=== PATIENT | male | born 1960 | race Caucasian/White ===

== ENCOUNTER 2016-08-29 14:19 | Inpatient (IN) | payer OTHER ==
[~2016-08-29] VITALS: Ht 177.8 cm; Wt 87.8 kg
[~2016-08-29 14:19] MED LIST: FLEXERIL10 MG PO
[2016-08-29 19:55] VITALS: BP 144/70
[2016-08-29 20:02] VITALS: BP 144/70
[2016-08-29 21:19] LABS: POINT-OF-CARE METER ID UU13113720; POINT-OF-CARE USER ID 610211320
[2016-08-30 00:08] VITALS: BP 154/67
[2016-08-30] MEDS ORDERED: BENADRYL25 MG PO (01:36)
[2016-08-30] MEDS ORDERED: COLACE100 MG PO (01:38)
[2016-08-30] MEDS ORDERED: PROZAC20 MG PO (01:38)
[2016-08-30] MEDS ORDERED: LOVENOX40 MG/0.4 SC (01:38)
[2016-08-30] MEDS ORDERED: LANTUS 3 M100 UNITS1 SC (01:39)
[2016-08-30] MEDS ORDERED: CONSTULOSE10 GM/15 M PO (01:40)
[2016-08-30] MEDS ORDERED: LISINOPRIL20 MG PO (01:40)
[2016-08-30] MEDS ORDERED: OXYCODONE HCL10 MG PO (01:42)
[2016-08-30] MEDS ORDERED: PERCOCET 10/1 TABLET PO (01:42)
[2016-08-30] MEDS ORDERED: SENNO8.6 MG PO (01:43)
[2016-08-30] MEDS ORDERED: MIRALAX17 GM PO (01:43)
[2016-08-30] MEDS ORDERED: COREG12.5 M1 PO (01:44)
[2016-08-30] MEDS ORDERED: METFORMIN HCL850 MG PO (01:44)
[2016-08-30] MEDS ORDERED: LO-DOSE ASPIRIN81 M2 PO (01:45)
[2016-08-30] MEDS ORDERED: HYDROCHLOROTHIA25 MG PO (01:45)
[2016-08-30] MEDS ORDERED: LIPITOR80 MG PO (01:45)
[2016-08-30 05:21] LABS: HEMATOCRIT 29.1 % (38.0-50.0); MCH 31.2 PG (29.0-34.0); MCHC 33.7 G/DL (30.0-36.0); MCV 92.7 FL (86-99); MEAN PLAT.VOLUME 8.9 uM^3 (9.0-12.4); PLATELET COUNT 181 K/uL (156-360); RBC DIS.WIDTH-CV 12.6 % (11.8-14.6); RBC DIS.WIDTH-SD 42.2 % (39-53); RED BLOOD COUNT 3.14 M/uL (4.00-5.50); WHITE BLOOD COUNT 7.9 K/uL (4.1-10.2)
[2016-08-30 05:35] VITALS: BP 140/64
[2016-08-30 05:41] LABS: INTER. NORMALIZED RATIO 1.5; PROTHROMBIN TIME 15.4 (9.2-11.2)
[2016-08-30 05:46] LABS: ALKALINE PHOSPHATASE 68 IU/L (3-129); ANION GAP 9 MEQ/L (2-14); CHLORIDE 103 MEQ/L (99-109); GFR ESTIMATE (CALCULATED) > 59 mL/min/; GLUCOSE 157 mg/dL (70-99); POTASSIUM 3.3 MEQ/L (3.7-5.4); SAMPLE HEMOLYSIS CHECK 0; SAMPLE ICTERIC CHECK 0; SAMPLE LIPEMIA CHECK 0; SODIUM 138 MEQ/L (136-147); TOTAL BILIRUBIN 0.6 MG/DL (0.0-1.0); UREA NITROGEN (BUN) 19 mg/dL (9-23)
[2016-08-30 07:15] LABS: POINT-OF-CARE METER ID UU13113720
[2016-08-30 11:27] LABS: POINT-OF-CARE METER ID UU13113720
[2016-08-30 15:36] VITALS: BP 149/68
[2016-08-30 16:59] LABS: POINT-OF-CARE METER ID UU14174215
[2016-08-30 21:30] LABS: POINT-OF-CARE METER ID UU13113720; POINT-OF-CARE USER ID 610211320
[2016-08-31 05:18] VITALS: BP 105/58
[2016-08-31 05:52] LABS: ANION GAP 8 MEQ/L (2-14); CHLORIDE 106 MEQ/L (99-109); GFR ESTIMATE (CALCULATED) > 59 mL/min/; GLUCOSE 134 mg/dL (70-99); POTASSIUM 3.8 MEQ/L (3.7-5.4); SAMPLE HEMOLYSIS CHECK 0; SAMPLE ICTERIC CHECK 0; SAMPLE LIPEMIA CHECK 0; SODIUM 140 MEQ/L (136-147); UREA NITROGEN (BUN) 17 mg/dL (9-23)
[2016-08-31 05:59] LABS: INTER. NORMALIZED RATIO 1.9; PROTHROMBIN TIME 19.5 (9.2-11.2)
[2016-08-31 08:17] LABS: POINT-OF-CARE METER ID UU13113720
[2016-08-31 11:53] LABS: POINT-OF-CARE METER ID UU13113720
[2016-08-31 16:04] VITALS: BP 157/72
[2016-08-31 16:54] LABS: POINT-OF-CARE METER ID UU14174215
[2016-08-31 21:13] LABS: POINT-OF-CARE METER ID UU13113720
[2016-09-01 05:28] VITALS: BP 158/72
[2016-09-01 05:47] LABS: PROTHROMBIN TIME 20.8 (9.2-11.2)
[2016-09-01 06:59] LABS: POINT-OF-CARE METER ID UU13113720
[2016-09-01 08:37] VITALS: BP 160/78
[2016-09-01 11:39] LABS: POINT-OF-CARE METER ID UU13113720
[2016-09-01 15:35] VITALS: BP 128/68
[2016-09-01 16:26] LABS: POINT-OF-CARE METER ID UU13113720
[2016-09-01 21:09] LABS: POINT-OF-CARE METER ID UU13113720; POINT-OF-CARE USER ID 610211320
[2016-09-02 05:08] LABS: INTER. NORMALIZED RATIO 1.8; PROTHROMBIN TIME 18.9 (9.2-11.2)
[2016-09-02 05:41] VITALS: BP 149/67
[2016-09-02 07:27] VITALS: BP 158/72
[2016-09-02 07:48] LABS: POINT-OF-CARE METER ID UU14174215; POINT-OF-CARE USER ID AHSSSJB31
[2016-09-02 12:07] LABS: POINT-OF-CARE METER ID UU14174215; POINT-OF-CARE USER ID AHSSSJB31
[2016-09-02 15:30] VITALS: BP 125/61
[2016-09-02 16:22] LABS: POINT-OF-CARE METER ID UU13113720
[2016-09-02 21:33] LABS: POINT-OF-CARE METER ID UU14174215
[2016-09-03 04:22] LABS: INTER. NORMALIZED RATIO 1.9; PROTHROMBIN TIME 19.4 (9.2-11.2)
[2016-09-03 04:51] VITALS: BP 149/76
[2016-09-03 07:19] LABS: POINT-OF-CARE METER ID UU13113720; POINT-OF-CARE USER ID AHSSSJB31
[2016-09-03 12:05] LABS: POINT-OF-CARE METER ID UU13113720
[2016-09-03 16:09] VITALS: BP 163/94
[2016-09-03 16:38] LABS: POINT-OF-CARE METER ID UU14174215
[2016-09-03 21:25] LABS: POINT-OF-CARE METER ID UU14174215
[2016-09-04 05:16] VITALS: BP 160/72
[2016-09-04 05:37] LABS: INTER. NORMALIZED RATIO 1.9; PROTHROMBIN TIME 19.2 (9.2-11.2)
[2016-09-04 06:52] LABS: POINT-OF-CARE METER ID UU14174215; POINT-OF-CARE USER ID AHSSSJB31
[2016-09-04 11:56] LABS: POINT-OF-CARE METER ID UU14174215; POINT-OF-CARE USER ID AHSSSJB31
[2016-09-04 15:15] VITALS: BP 163/79
[2016-09-04 16:07] LABS: POINT-OF-CARE METER ID UU14174215
[2016-09-04 21:47] LABS: POINT-OF-CARE METER ID UU13113720
[2016-09-05 04:50] LABS: INTER. NORMALIZED RATIO 2.4
[2016-09-05 05:41] VITALS: BP 157/70
[2016-09-05 07:06] LABS: POINT-OF-CARE METER ID UU14174215; POINT-OF-CARE USER ID AHSSSJB31
[2016-09-05 12:05] LABS: POINT-OF-CARE METER ID UU14174215; POINT-OF-CARE USER ID AHSSSJB31
[2016-09-05 15:29] VITALS: BP 129/63
[2016-09-05 16:28] LABS: POINT-OF-CARE METER ID UU13113720
[2016-09-05 21:27] LABS: POINT-OF-CARE METER ID UU14174215; POINT-OF-CARE USER ID 610211320
[2016-09-06 05:45] VITALS: BP 173/76
[2016-09-06 06:14] LABS: INTER. NORMALIZED RATIO 2.3; PROTHROMBIN TIME 24.1 (9.2-11.2)
[2016-09-06 07:12] LABS: POINT-OF-CARE METER ID UU14174215
[2016-09-06 08:50] VITALS: BP 174/75
[2016-09-06 11:36] LABS: POINT-OF-CARE METER ID UU14174215; POINT-OF-CARE USER ID AHSSSJB31
[2016-09-06 11:45] VITALS: BP 138/72
[2016-09-06 16:00] VITALS: BP 161/72
[2016-09-06 17:12] LABS: POINT-OF-CARE METER ID UU13113720
[2016-09-06 21:39] LABS: POINT-OF-CARE METER ID UU13113720
[2016-09-07 05:47] LABS: INTER. NORMALIZED RATIO 1.7
[2016-09-07 06:01] VITALS: BP 144/72
[2016-09-07 06:58] LABS: POINT-OF-CARE METER ID UU14174215; POINT-OF-CARE USER ID ENVGAF
[2016-09-07 11:24] LABS: POINT-OF-CARE METER ID UU14174215
[2016-09-07 15:30] VITALS: BP 161/76
[2016-09-07 16:24] LABS: POINT-OF-CARE METER ID UU13113720
[2016-09-07 21:22] LABS: POINT-OF-CARE METER ID UU13113720
[2016-09-08 05:52] VITALS: BP 165/74
[2016-09-08 06:59] LABS: PROTHROMBIN TIME 21.3 (9.2-11.2)
[2016-09-08 07:42] VITALS: BP 166/71
[2016-09-08 08:00] LABS: POINT-OF-CARE METER ID UU13113720
[2016-09-08 11:51] LABS: POINT-OF-CARE METER ID UU13113720
[2016-09-08 15:45] VITALS: BP 129/60
[2016-09-08 16:59] LABS: POINT-OF-CARE METER ID UU14174215
[2016-09-08 21:15] LABS: POINT-OF-CARE METER ID UU13113720
[2016-09-09 05:31] LABS: INTER. NORMALIZED RATIO 2.3; PROTHROMBIN TIME 23.5 (9.2-11.2)
[2016-09-09 06:23] VITALS: BP 154/69
[2016-09-09 07:05] LABS: POINT-OF-CARE METER ID UU13113720
[2016-09-09 07:31] VITALS: BP 157/77
[2016-09-09 11:32] LABS: POINT-OF-CARE METER ID UU14174215; POINT-OF-CARE USER ID ENVGAF
[2016-09-09 17:35] LABS: POINT-OF-CARE METER ID UU13113720
[2016-09-09 21:32] LABS: POINT-OF-CARE METER ID UU14174215
[2016-09-10 05:47] VITALS: BP 149/71
[2016-09-10 07:53] LABS: POINT-OF-CARE METER ID UU14174215
[2016-09-10 11:19] LABS: POINT-OF-CARE METER ID UU14174215
[2016-09-10 15:05] VITALS: BP 154/71
[2016-09-10 16:33] LABS: POINT-OF-CARE METER ID UU13113720
[2016-09-10 21:14] LABS: POINT-OF-CARE METER ID UU13113720
[2016-09-11 05:30] VITALS: BP 154/70
[2016-09-11 06:51] LABS: POINT-OF-CARE METER ID UU14174215; POINT-OF-CARE USER ID ENVGAF
[2016-09-11 07:14] LABS: PROTHROMBIN TIME 20.3 (9.2-11.2)
[2016-09-11 11:26] LABS: POINT-OF-CARE METER ID UU14174215
[2016-09-11 16:33] LABS: POINT-OF-CARE METER ID UU13113720
[2016-09-11 17:44] VITALS: BP 174/88
[2016-09-11 21:16] LABS: POINT-OF-CARE METER ID UU13113720
[2016-09-12 06:16] VITALS: BP 143/67
[2016-09-12 06:48] LABS: INTER. NORMALIZED RATIO 2.4; PROTHROMBIN TIME 25.4 (9.2-11.2)
[2016-09-12 07:53] LABS: POINT-OF-CARE METER ID UU13113720
[2016-09-12 11:46] LABS: POINT-OF-CARE METER ID UU13113720
[2016-09-12 15:58] VITALS: BP 132/67
[2016-09-12 16:56] LABS: POINT-OF-CARE METER ID UU13113720
[2016-09-12 21:30] LABS: POINT-OF-CARE METER ID UU13113720
[2016-09-13 05:29] VITALS: BP 142/62
[2016-09-13 06:22] LABS: INTER. NORMALIZED RATIO 2.5; PROTHROMBIN TIME 26.1 (9.2-11.2)
[2016-09-13 07:21] LABS: POINT-OF-CARE METER ID UU13113720
[2016-09-13 12:11] LABS: POINT-OF-CARE METER ID UU13113720
[2016-09-13 13:58] VITALS: BP 157/74
[2016-09-13 16:36] LABS: POINT-OF-CARE METER ID UU14174215
[2016-09-13] MEDS ORDERED: COUMADIN5 MG PO (17:09)
[2016-09-13] MEDS ORDERED: COREG12.5 M1 PO (17:09)
[2016-09-13] MEDS ORDERED: METFORMIN HCL850 MG PO (17:09)
[2016-09-13] MEDS ORDERED: ZOLPIDEM TARTRAT5 MG PO (17:09)
[2016-09-13] MEDS ORDERED: THERAGRAN1 TABLET PO (17:09)
[2016-09-13] MEDS ORDERED: LANTUS 3 M100 UNITS1 SC (17:09)
[2016-09-13] MEDS ORDERED: TYLENOL REGULA325 MG PO (17:09)
[2016-09-13] MEDS ORDERED: LISINOPRIL20 MG PO (17:09)
[2016-09-13] MEDS ORDERED: VITAMIN D31000 UNI2 PO (17:09)
[2016-09-13] MEDS ORDERED: MORPHINE SULFAT15 MG PO (17:09)
[2016-09-13] MEDS ORDERED: PROZAC20 MG PO (17:09)
[2016-09-13] MEDS ORDERED: LIPITOR80 MG PO (17:09)
[2016-09-13 21:34] LABS: POINT-OF-CARE METER ID UU14174215
[2016-09-14 05:46] LABS: INTER. NORMALIZED RATIO 2.3; PROTHROMBIN TIME 24.2 (9.2-11.2)
[2016-09-14 05:52] VITALS: BP 145/72
[2016-09-14 06:59] LABS: POINT-OF-CARE METER ID UU13113720; POINT-OF-CARE USER ID ENVGAF
== END 2016-09-14 10:55 | DRG 560 ==
LOC: 3WEST 14:19
PROVIDERS: Physical Medicine & Rehabilitation Pain Medicine; Psychiatry & Neurology Neurology
PROC: F07M0ZZ Range of Motion and Joint Mobility Treatment of Musculoskeletal System - Whole Body (ICD-10-PCS; principal; 2016-08-29)
DX: S82.142D Displaced bicondylar fracture of left tibia, subsequent encounter for closed fracture with routine healing (principal); I69.352 Hemiplegia and hemiparesis following cerebral infarction affecting left dominant side; Q21.1 Atrial septal defect; D62 Acute posthemorrhagic anemia; E87.1 Hypo-osmolality and hyponatremia; W01.10XD Fall on same level from slipping, tripping and stumbling with subsequent striking against unspecified object, subsequent encounter; I10 Essential (primary) hypertension; E78.5 Hyperlipidemia, unspecified; E11.9 Type 2 diabetes mellitus without complications; G47.30 Sleep apnea, unspecified; E87.6 Hypokalemia; F32.9 Major depressive disorder, single episode, unspecified; R20.0 Anesthesia of skin; I69.398 Other sequelae of cerebral infarction; I48.91 Unspecified atrial fibrillation
CPT/HCPCS: 80048; 80053; 82948; 85027; 85610; 97110 GO; 97112 GO; 97530 GP; J1650; J1815